=== PATIENT | female | born 1990 | race Caucasian/White ===

== ENCOUNTER 2019-09-01 07:31 | Inpatient (IN) ==
[2019-09-01] MEDS ORDERED: OXYTOCIN 30 UNITS/500 ML BAG IV PRN ×4 (09:11→18:25)
--- NOTE | 2019-09-01 09:26 | Obstetrical Progress Note ---
Date of Service September 01, 2019 Assessment & Plan Admission and Anticipated Discharge Date Admission Date: September 01, 2019 Subjective Admission Note 28 F [id number] at 40.5 weeks admitted for induction of labor for post-dates. FHT Cat 1. GBS is negative. Cervix 1/50/-3/soft/vertex/intact. EFW 7.5 lbs. Will start Oxytocin for induction of labor. Results & Data ([facility]) Vital Signs (Past 12 Hours) Vital Signs Temp Pulse Resp BP 09/01/19 07:49 36.5 C 90 20 103/62
[2019-09-01 09:35] LABS: Mean Corpuscular Volume 93.1 fL (80-100); Platelet Count 171 K/uL (130-400); RDW Coefficient of Variation 13.3 % (11.5-14.5); RDW Standard Deviation 45.5 fL (36.4-46.3); Red Blood Count 4.19 M/uL (4.2-5.4); White Blood Count 11.01 K/uL (4.8-10.8)
[2019-09-01 09:39] LABS: Mean Corpuscular Hgb Conc 33.3 g/dL (32-36)
[2019-09-01] MEDS: LACTATED RINGER'S 1,000 ML IV PRN ×2 (10:00→14:05)
[2019-09-01] MEDS ORDERED: ePHEDrine sulfate 50 MG/ML AMP ONE (12:09)
[2019-09-01] MEDS ORDERED: BUPIVACAINE 0.25% 30 ML VIAL ONE (12:09)
[2019-09-01] MEDS ORDERED: fentaNYL citrate 100 MCG/2 ML VIAL ONE (12:09)
[2019-09-01] MEDS ORDERED: fentaNYL 2MCG/ML ROPIV 1.25MG/ML 100 ML BAG EPI ONE (12:10)
--- NOTE | 2019-09-01 13:23 | Anesthesiology Consultation ---
Date of Service September 01, 2019 Assessment & Plan (1) Encounter for pre-operative examination: Chart Review Chart Review: Patient NOT seen in Pre Admission Testing and Acceptable Risk for Labor Epidural Consults Requested none ASA ASA2 Proposed Anesthesia Anesthesia Type: Labor Epidural Risk / Benefits Reviewed With: PT / POA / Parent / Guardian, Accepts Plan and Informed Consent Obtained History Height/Weight Height: 5 ft 8 in Weight: 73.028 kg Allergies Allergy/AdvReac Type Severity Reaction Status Date / Time Penicillins Allergy Unknown Unknown Verified 09/01/19 08:11 Medications Home Medications Medication Instructions Recorded Confirmed Last Taken PNV cmb#95-ferrous fumarate-FA 1 tab PO DAILY 08/30/19 09/01/19 08/31/19 [] levothyroxine 100 mcg PO DAILY 08/30/19 09/01/19 09/01/19 Active Medications Generic Name Dose Route Start Last Admin Trade Name Freq PRN Reason Stop Dose Admin Lactated Ringer's 1,000 mls @ 125 mls/hr 09/01/19 09:11 09/01/19 14:05 Lr IV 09/03/19 09:10 999 mls/hr .Q8H PRN Administration L&D Protocol Protocol Oxytocin 30 units in 500 mls @ 8 mls/hr 09/01/19 09:47 09/01/19 11:45 Pitocin IV 09/03/19 09:46 0.48 units/hr .Q24H PRN 8 mls/hr Labor Induction/Augmentation Titration Protocol 0.48 UNITS/HR NPO Date Last Intake of Fluids: 09/01/19 Time Last Intake of Fluids: 13:20 Date Last Intake of Solids: 09/01/19 Time Last Intake of Solids: 07:00 Past Medical History Medical History Hypothyroid Uterus, septate Surgically removed uterine septum Exercise / Class Metabolic Activity II 4-5 Yardwork/Stairs/Walk up hill Past Family History Family History Grandfather (Maternal) Heart disease Grandmother (Paternal) Breast cancer Past Surgical History Surgical History [place] teeth removed Past Anesthesia History No Hx of Anesthesia Complications History of PONV No Hx of PONV Social History Smoking Status: Never smoker Do You Dip or Chew Tobacco: No Hx Alcohol Use: No Hx Substance Use: No Review of Systems Patient denies history of abnormal bleeding or bleeding disorder. Patient denies active use of anticoagulants other than low dose aspirin. Patient denies numbness, tingling or weakness in lower extremities. Negative for chest pain or shortness of breath. Patient denies active symptoms of GERD. Physical Exam Vital Signs Last Vital Signs Temp 36.8 C 09/01/19 11:09 Pulse 71 09/01/19 13:18 Resp 18 09/01/19 12:39 BP 124/70 09/01/19 12:39 Pulse Ox 97 09/01/19 13:13 Constitutional not obese (Gravid uterus) ENMT Mouth: no TMJ abnormality and oral opening not small Thyromental Distance: > or= 3.5 Finger Breadths Mallampati Class: II Neck normal visual inspection; neck extension not limited Respiratory normal respiratory effort Auscultation: lungs clear to auscultation bilaterally Cardiovascular Rate/Rhythm: regular rate and regular rhythm Heart Sounds: no murmur Neurologic moves all extremities Motor/Sensory: no sensory deficit Psychiatric Orientation: alert and oriented x 3 Testing Laboratory Results 09/01/19 09:23
[2019-09-01] MEDS ORDERED: DiphenhydrAMINE HCL 50 MG/ML VIAL IV PRN (14:15)
[2019-09-01] MEDS ORDERED: NALOXONE HCL 1 MG in SODIUM CHLORIDE 0.9% 1000ML 1,000 ML IV PRN (14:15)
[2019-09-01] MEDS ORDERED: fentaNYL 2MCG/ML ROPIV 1.25MG/ML 100 ML BAG EPI PRN (14:15)
[2019-09-01] MEDS ORDERED: NALOXONE HCL 0.4 MG/1 ML VIAL/CARP IV PRN (14:15)
[2019-09-01] MEDS ORDERED: NALBUPHINE HCL INJ 10 MG/ML AMP IV PRN (14:15)
[2019-09-01] MEDS ORDERED: ONDANSETRON INJ 2 MG/ML 2 ML VIAL IV PRN (14:15)
[2019-09-01] MEDS ORDERED: ePHEDrine sulfate 50 MG/ML AMP IV PRN (14:15)
--- NOTE | 2019-09-01 14:35 | Obstetrical Progress Note ---
Date of Service September 01, 2019 Assessment & Plan Admission and Anticipated Discharge Date Admission Date: September 01, 2019 Physical Exam Genitourinary: Manual OB Exam: + cervical dilation 3 cm, + cervical effacement 50%, + station -2 and + amniotic fluid clear OB Exam Monitor Tracing: + external FHT monitor used, + external uterine monitor used, + category I and + normal FHT variability AROM with amni-hook clear fluid Results & Data ([facility]) Vital Signs (Past 12 Hours) Vital Signs Temp Pulse Resp BP Pulse Ox 09/01/19 14:28 73 98 09/01/19 14:27 65 97/54 L 09/01/19 14:23 91 H 20 114/59 L 98 09/01/19 14:18 85 98 09/01/19 14:16 86 20 96/52 L 09/01/19 14:14 74 97/53 L 09/01/19 14:13 82 97 09/01/19 14:12 68 18 95/53 L 09/01/19 14:10 81 18 92/52 L 09/01/19 14:08 68 18 96/56 L 98 09/01/19 14:06 70 18 98/56 L 09/01/19 14:04 71 18 98/57 L 09/01/19 14:03 78 99 09/01/19 14:02 71 100/57 L 09/01/19 13:59 61 101/57 L 09/01/19 13:58 68 98 09/01/19 13:57 70 87/51 L 09/01/19 13:54 63 118/57 L 09/01/19 13:53 80 110/56 L 96 09/01/19 13:50 77 107/61 09/01/19 13:48 82 114/64 97 09/01/19 13:47 70 108/55 L 09/01/19 13:44 77 109/69 09/01/19 13:43 75 96 09/01/19 13:42 78 112/70 09/01/19 13:40 70 116/72 09/01/19 13:38 75 114/70 97 09/01/19 13:36 37.0 C 70 20 116/72 09/01/19 13:33 81 97 09/01/19 13:28 80 99 09/01/19 13:23 77 97 09/01/19 13:22 20 09/01/19 13:20 74 121/74 09/01/19 13:18 71 97 09/01/19 13:13 81 97 09/01/19 13:08 70 97 09/01/19 13:03 69 97 09/01/19 12:58 66 97 09/01/19 12:53 78 97 09/01/19 12:48 67 98 09/01/19 12:43 65 100 09/01/19 12:39 71 18 124/70 09/01/19 12:36 78 99 09/01/19 12:31 67 100 09/01/19 12:30 18 09/01/19 12:26 72 100 09/01/19 12:21 73 100 09/01/19 12:16 65 100 09/01/19 12:11 65 100 09/01/19 12:06 76 100 09/01/19 12:01 71 100 09/01/19 11:56 68 100 09/01/19 11:51 62 100 09/01/19 11:09 36.8 C 74 18 119/71 09/01/19 10:02 72 18 117/67 09/01/19 07:49 36.5 C 90 20 103/62
--- NOTE | 2019-09-01 18:19 | Anesthesia Procedure Note ---
Date of Service September 01, 2019 Anesthesia Post Epidural Note Vital Signs Vital Signs: Temp Pulse Resp BP Pulse Ox 36.7 C 68 18 109/57 L 96 09/01/19 16:45 09/01/19 18:14 09/01/19 16:45 09/01/19 18:14 09/01/19 18:08 Notes Mental Status: alert / awake / arousable and participated in evaluation Nausea / Vomiting: adequately controlled Pain: adequately controlled Airway Patency, RR, SpO2: stable & adequate BP & HR: stable & adequate Hydration State: stable & adequate Neuraxial Anesthesia: was administered and sensory block is resolving Anesthetic Complications: no major complications apparent and Pt Satisfied with anesthetic care Epidural: Removed without complications and With tip intact Notes: Epidural site clean, dry and intact. No signs of edema, erythema or bruising at insertion site. Pt instructed to request anesthesia if she has residual lower extremity numbness or if she develops lower extremity pain or weakness, back pain or headache.
--- NOTE | 2019-09-01 18:19 | Delivery Summary ---
Vaginal Delivery Summary Date of Service September 01, 2019 Vaginal Delivery Summary Delivery Note live male over intact perineum ARNOLD male Apgars 8/9 weight pending. Delayed cord clamping followed by cord blood and spontaneous delivery of intact placenta. No tears. EBL 250 ml. Final sponge and instrument counts are correct. Mom and baby stable.
[2019-09-01] MEDS ORDERED: bisacodyL 10 MG SUPP PR PRN (18:25)
[2019-09-01] MEDS ORDERED: SUPERCREAM 0.870% 15 GM JAR EXT PRN (18:25)
[2019-09-01] MEDS ORDERED: BENZOCAINE 20% AER SPR 82.5 GM CAN EXT PRN (18:25)
[2019-09-01] MEDS ORDERED: HYDROCORTISONE ACETATE 25 MG SUPP PR PRN (18:25)
[2019-09-01] MEDS ORDERED: ACETAMINOPHEN 325 MG TAB PO PRN (18:25)
[2019-09-01] MEDS: DOCUSATE SODIUM 100 MG CAP PO SCH (20:50)
[2019-09-01] MEDS: IBUPROFEN 600 MG TAB PO PRN (22:00)
[2019-09-02] MEDS: IBUPROFEN 600 MG TAB PO PRN ×3 (01:44→10:57)
[2019-09-02] MEDS ORDERED: LEVOTHYROXINE SODIUM 100 MCG TABLET PO SCH (06:30)
[2019-09-02 06:58] LABS: Hematocrit (blood only) 35.8 % (37-47); Hemoglobin 11.7 g/dL (12.0-16.0); Mean Corpuscular Hemoglobin 30.8 pg (25-34); Mean Corpuscular Hgb Conc 32.7 g/dL (32-36); Mean Corpuscular Volume 94.2 fL (80-100); Mean Platelet Volume 9.9 fL (7.4-10.4); Platelet Count 159 K/uL (130-400); RDW Coefficient of Variation 13.4 % (11.5-14.5); RDW Standard Deviation 46.2 fL (36.4-46.3); White Blood Count 14.29 K/uL (4.8-10.8)
[2019-09-02] MEDS ORDERED: PRENATAL VITAMIN 1 TAB PO SCH (08:00)
[2019-09-02] MEDS: DOCUSATE SODIUM 100 MG CAP PO SCH (08:23)
--- NOTE | 2019-09-02 08:28 | Obstetrical Progress Note ---
Date of Service September 02, 2019 Assessment & Plan Admission and Anticipated Discharge Date Admission Date: September 01, 2019 Subjective Patient is seen and examined. She feels well, no complaints. Desires d/c this evening Ambulating without dizziness Voiding without difficulty Tolerating regular diet with out N&V Bleeding is minimal No fever/ chills/ CP/ SOB/ N&V/ Leg pain Breast feeding without problems Vital Signs Temp Pulse Pulse Resp BP BP Pulse Ox 09/02/19 07:38 36.6 C 63 20 98/61 L 09/02/19 03:45 36.5 C 57 L 16 103/61 98 09/01/19 23:45 36.6 C 64 18 100/60 97 09/01/19 20:55 36.5 C 63 18 96/59 L 97 09/01/19 20:13 67 18 109/59 L 09/01/19 19:58 60 112/62 09/01/19 19:44 71 18 108/57 L 09/01/19 19:29 68 113/62 09/01/19 19:14 74 18 118/57 L 09/01/19 19:00 64 18 120/58 L 09/01/19 18:45 18 09/01/19 18:30 18 09/01/19 18:29 70 116/58 L 09/01/19 18:15 36.5 C 20 09/01/19 18:14 68 109/57 L 09/01/19 18:08 78 96 09/01/19 18:03 82 96 09/01/19 18:00 81 135/71 09/01/19 17:59 73 84 L 09/01/19 17:58 73 97 09/01/19 17:53 88 98 09/01/19 17:52 101 H 139/91 88 L 09/01/19 17:48 80 99 09/01/19 17:47 93 H 92 09/01/19 17:43 73 100 09/01/19 17:41 87 90 09/01/19 17:38 91 H 97 09/01/19 17:33 79 100 09/01/19 17:30 74 119/70 09/01/19 17:28 78 100 09/01/19 17:23 84 100 09/01/19 17:18 82 98 09/01/19 17:14 72 112/66 09/01/19 17:13 74 99 09/01/19 17:08 68 98 09/01/19 17:03 75 99 09/01/19 17:00 71 114/62 09/01/19 16:58 64 100 09/01/19 16:53 71 98 09/01/19 16:48 74 100 09/01/19 16:45 36.7 C 77 18 119/70 09/01/19 16:43 70 100 09/01/19 16:38 64 98 09/01/19 16:33 65 97 09/01/19 16:30 66 112/67 09/01/19 16:28 67 98 09/01/19 16:23 67 99 09/01/19 16:18 67 98 09/01/19 16:15 18 09/01/19 16:13 72 105/56 L 99 09/01/19 16:08 58 L 99 09/01/19 16:03 63 98 09/01/19 16:00 58 L 99/55 L 09/01/19 15:58 65 98 09/01/19 15:53 60 98 09/01/19 15:48 64 98 09/01/19 15:44 60 98/55 L 09/01/19 15:43 61 97 09/01/19 15:38 65 99 09/01/19 15:33 62 98 09/01/19 15:30 18 09/01/19 15:28 67 103/57 L 99 09/01/19 15:23 72 99 09/01/19 15:18 64 99 09/01/19 15:16 65 97/54 L 09/01/19 15:13 68 100 09/01/19 15:08 81 106/55 L 100 09/01/19 15:03 70 98 09/01/19 15:02 61 103/61 09/01/19 15:00 18 09/01/19 14:59 68 107/65 09/01/19 14:58 67 98 09/01/19 14:53 84 100 09/01/19 14:52 83 102/59 L 09/01/19 14:48 67 102/60 98 09/01/19 14:43 75 98 09/01/19 14:42 78 105/59 L 09/01/19 14:39 69 106/60 09/01/19 14:38 67 97 09/01/19 14:33 36.5 C 65 20 126/53 L 97 09/01/19 14:28 73 98 09/01/19 14:27 65 97/54 L 09/01/19 14:23 91 H 20 114/59 L 98 09/01/19 14:18 85 98 09/01/19 14:16 86 20 96/52 L 09/01/19 14:14 74 97/53 L 09/01/19 14:13 82 97 09/01/19 14:12 68 18 95/53 L 09/01/19 14:10 81 18 92/52 L 09/01/19 14:08 68 18 96/56 L 98 09/01/19 14:06 70 18 98/56 L 09/01/19 14:04 71 18 98/57 L 09/01/19 14:03 78 99 09/01/19 14:02 71 100/57 L 09/01/19 13:59 61 101/57 L 09/01/19 13:58 68 98 09/01/19 13:57 70 87/51 L 09/01/19 13:54 63 118/57 L 09/01/19 13:53 80 110/56 L 96 09/01/19 13:50 77 107/61 09/01/19 13:48 82 114/64 97 09/01/19 13:47 70 108/55 L 09/01/19 13:44 77 109/69 09/01/19 13:43 75 96 09/01/19 13:42 78 112/70 09/01/19 13:40 70 116/72 09/01/19 13:38 75 114/70 97 09/01/19 13:36 37.0 C 70 20 116/72 09/01/19 13:33 81 97 09/01/19 13:28 80 99 09/01/19 13:23 77 97 09/01/19 13:22 20 09/01/19 13:20 74 121/74 09/01/19 13:18 71 97 09/01/19 13:13 81 97 09/01/19 13:08 70 97 09/01/19 13:03 69 97 09/01/19 12:58 66 97 09/01/19 12:53 78 97 09/01/19 12:48 67 98 09/01/19 12:43 65 09/01/19 12:39 71 18 124/70 09/01/19 12:36 78 99 09/01/19 12:31 67 100 09/01/19 12:30 18 09/01/19 12:26 72 100 09/01/19 12:21 73 09/01/19 12:16 65 100 09/01/19 12:11 65 100 09/01/19 12:06 76 09/01/19 12:01 71 09/01/19 11:56 68 09/01/19 11:51 62 09/01/19 11:09 36.8 C 74 18 119/71 09/01/19 10:02 72 18 117/67 Intake and Output 09/01/19 09/02/19 09/02/19 22:59 06:59 14:59 Intake Total 922.750 / 2096.216 Output Total 600 / 1000 Balance 322.750 / 1096.216 Intake: IV 922.750 / 2096.216 Lr 1,000 ml @ 125 mls/hr IV . 483.333 / 1649.833 Q8H PRN Rx#:[id number] PITOCIN 30 units In 500 ml @ 19 439.417 / 446.383 .98 UNITS/HR 333 mls/hr IV . Q1H31M PRN Rx#:[id number] Output: Urine 200 / 600 Urine Amount (Catheter) 400 / 400 Gallagher/Indwelling 400 / 400 Other: # Unmeasured Voids 1 Lab Results 09/01/19 09/02/19 Range/Units 09:23 06:33 WBC 11.01 H 14.29 H (4.8-10.8) K/uL RBC 4.19 L 3.80 L (4.2-5.4) M/uL Hgb 13.0 11.7 L (12.0-16.0) g/dL Hct 39.0 35.8 L (37-47) % MCV 93.1 94.2 (80-100) fL MCH 31.0 30.8 (25-34) pg MCHC 33.3 32.7 (32-36) g/dL RDW Std Deviation 45.5 46.2 (36.4-46.3) fL RDW Coeff of Prabhjot 13.3 13.4 (11.5-14.5) % Plt Count 171 159 (130-400) K/uL MPV 10.0 9.9 (7.4-10.4) fL PE: General: Alert, orientedx3, NAD Abd: soft, NT, fundus firm, below Umbilicus Perineum intact, Lochia rubra minimal Ext; NT, no edema AP: 28 yo s/p , ppd# 2 VSS Afebrile doing well Continue routine care Desires d/c this evening Discussed when to call All questions were answered D/C home , f/u in office Results & Data ([facility]) Vital Signs (Past 12 Hours) Vital Signs Temp Pulse Resp BP Pulse Ox 09/02/19 07:38 36.6 C 63 20 98/61 L 09/02/19 03:45 36.5 C 57 L 16 103/61 98 09/01/19 23:45 36.6 C 64 18 100/60 97 09/01/19 20:55 36.5 C 63 18 96/59 L 97
[2019-09-02] MEDS ORDERED: NON-FORMULARY MEDICATION (Pnv Cmb#95-Ferrous Fumarate-Fa [Prenatal] 1 TAB) PO SCH (09:00)
[2019-09-02] MEDS ORDERED: DIPHTHERIA/TETANUS/PERTUSSIS 0.5 ML SYR/VIAL IM ONE (09:00)
[2019-09-02] MEDS ORDERED: bisacodyL 5 MG TABEC PO SCH (20:00)
== END 2019-09-02 18:35 | disposition home or self-care (01) | DRG 807 ==
LOC: 4S1 07:31 → 4S2 20:43